=== PATIENT | male | born 1985 | race Hispanic/Latino ===

== ENCOUNTER 2020-04-27 21:04 | Emergency (ER) | payer SELFPAY ==
[2020-04-27 21:27] LABS: #Basophils 0.1 thou/uL (0.0-0.2); #Eosinphils 0.2 thou/uL (0.0-0.7); #Lymphocytes 4.7 thou/uL (1.20-3.40); #Monocytes 0.7 thou/uL (0.11-0.59); #Neutrophils 3.9 thou/uL (1.40-6.50); %Basophils 1.2 % (0.0-1.0); %Eosinophils 1.7 % (0.0-10.0); %Lymphocytes 49.3 % (21.0-51.0); %Monocytes 7.2 % (0.0-10.0); %Neutrophils 40.6 % (42.0-75.0); Hemoglobin 17.1 g/dL (14.0-18.0); Mean Corpuscular HGB CONC 35.1 g/dL (32.0-36.0); Mean Corpuscular Hemoglobin 32.3 pg (27.0-31.0); Mean Corpuscular Volume 92.1 fL (78.0-98.0); Mean Platelet Volume 8.3 fL (7.4-10.4); Platelet Count 287 thou/uL (130-400); RBC Distribution Width 12.1 % (11.5-14.5); Red Blood Cell (RBC) Count 5.27 mill/uL (4.70-6.10); White Blood Cell (WBC) Count 9.5 thou/uL (4.8-10.8)
[2020-04-27] MEDS ORDERED: Ondansetron PF 4 MG/2 ML Vial ONE (21:34)
[2020-04-27 21:47] LABS: ALT (SGPT) 31 U/L (8-55); AST (SGOT) 26 U/L (5-34); Albumin 4.8 g/dL (3.5-5.0); Alkaline Phosphatase 87 U/L (40-110); Anion Gap 18 mmol/L (10-20); BUN (Urea Nitrogen) 22 mg/dL (8.9-20.6); Bilirubin, Total 0.7 mg/dL (0.2-1.2); Calc. Creatinine Clearance 0 mL/min (70-130); Calcium 9.9 mg/dL (7.8-10.44); Carbon Dioxide 18 mmol/L (22-29); Chloride 107 mmol/L (98-107); Estimated GFR-MDRD 66; Globulin 3.7 g/dL (2.4-3.5); Glucose 136 mg/dL (70-105); Potassium 3.5 mmol/L (3.5-5.1); Protein, Total 8.5 g/dL (6.0-8.3); Sodium 139 mmol/L (136-145)
--- NOTE | 2020-04-27 22:35 | CT ---
CT HEAD WITHOUT CONTRAST: Date: 04/27/2020 HISTORY: Mental status change. FINDINGS: Ventricles have normal size and position. No evidence of intracranial mass or hemorrhage. No edema or infarct. Sinuses are clear. IMPRESSION: Unremarkable head CT. POS: AGW
--- NOTE | 2020-04-27 22:37 | CT ---
CT ABDOMEN AND PELVIS WITHOUT IV CONTRAST: Date: 04/27/2020 INDICATION: Mental status change. Anxiety attacks. Difficulty breathing. FINDINGS: Lung bases clear. Liver, spleen, and pancreas unremarkable. Adrenal glands normal. Kidneys unremarkab le. Bowel loops unremarkable. Appendix appears normal. Aorta normal caliber. No mass, adenopathy, or free fluid. Pelvic structures unremarkable. Osseous structures unremarkable. IMPRESSION: No acute findings. POS: AGW
--- NOTE | 2020-04-27 22:41 | RAD ---
PORTABLE CHEST: Date: 04/27/2020 HISTORY: Difficulty breathing. FINDINGS: Lung coronado are clear. No infiltrate. Heart and mediastinum appear normal. Vascular markings normal. Osseous structures unremarkable. IMPRESSION: Negative chest. POS: AGW
[2020-04-28 00:09] LABS: Lactic Acid 0.7 mmol/L (0.5-2.2)
[2020-04-28] MEDS ORDERED: Lorazepam 2 MG/ML VIAL ONE (00:28)
== END 2020-04-28 00:49 | disposition home or self-care (01) ==
LOC: ERS 21:04
DX: F41.9 Anxiety disorder, unspecified (principal); Z87.891 Personal history of nicotine dependence; Z79.899 Other long term (current) drug therapy
CPT/HCPCS: 36415; 70450; 71045; 74176; 80053; 83605; 84484; 85025; 93005; 96361; 96374; 96375; J2060; J2405